=== PATIENT | male | born 1970 | race Caucasian/White ===

== ENCOUNTER → 2017-03-09 | Outpatient (CLI) | payer BC ==
[~2017-03-09] MED LIST: ATV1 PO; BXN500
[2017-03-09 13:10] LABS: BASO % 0.3 %; BASO ABS # 0.02 K/uL (0-0.2); COMPLETE YES; EOS % 2.1 %; HEMATOCRIT 45.2 % (42-52); LYMPH % 29.1 %; LYMPH ABS # 2.32 K/uL (1.2-3.4); MEAN CELL VOLUME 83.4 fL (80-100); MEAN CORPUSCULAR HEMOGLOBIN 27.9 pg (25-34); MEAN CORPUSCULAR HGB CONC 33.4 g/dl (32-36); MEAN PLATELET VOLUME 10.4 fL (7.4-10.4); MONO % 6.4 %; NEUT % 62.1 %; PLATELET COUNT 264 K/uL (130-400); RED BLOOD COUNT 5.42 M/uL (4.7-6.1); WHITE BLOOD COUNT 7.98 K/uL (4.8-10.8)
[2017-03-09 13:22] LABS: ALT/SGPT 62 U/L (12-78); AST/SGOT 24 U/L (15-37); BLOOD UREA NITROGEN 16 mg/dl (7-18); CALCIUM 9.4 mg/dl (8.5-10.1); CARBON DIOXIDE 33 mmol/L (21-32); CHLORIDE 103 mmol/L (98-107); GLUCOSE 96 mg/dl (70-99); POTASSIUM 3.7 mmol/L (3.5-5.1); SODIUM 140 mmol/L (136-145)
[2017-03-09 13:33] LABS: ALKALINE PHOSPHATASE 56 U/L (45-117); CHOLESTEROL 202 mg/dl (0-200); CHOLESTEROL/HDL RATIO 3.3; HDL CHOLESTEROL 62 mg/dl; LDL CHOLESTEROL CALCULATED 115 mg/dl; TRIGLYCERIDES 124 mg/dl (0-150); VERY LOW DENSITY LIPOPROT CALC 25 mg/dl
== END | disposition home or self-care (01) ==
LOC: C.LABBC 10:37
PROVIDERS: ATTEND Physician Assistant Medical
DX: Z00.00 Encounter for general adult medical examination without abnormal findings (principal); R03.0 Elevated blood-pressure reading, without diagnosis of hypertension; R73.9 Hyperglycemia, unspecified; F41.9 Anxiety disorder, unspecified